=== PATIENT | male | born 1960 | race Caucasian/White ===

== ENCOUNTER → 2018-11-05 10:19 | Outpatient (CLI) | payer OTHER | END | disposition home or self-care (01) | LOC: D.MRI 11-03 10:30 | DX: M75.111 Incomplete rotator cuff tear or rupture of right shoulder, not specified as traumatic (principal); M54.12 Radiculopathy, cervical region ==

== ENCOUNTER 2019-01-18 06:50 | Day surgery (SDC) | payer OTHER ==
[2019-01-14 14:46] LABS: HEMATOCRIT 45.6 % (42.0-54.0); HEMOGLOBIN 15.5 g/dL (13.5-17.5); MCH 31.9 pg (26.0-34.0); MCV 93.8 fL (80.0-100.0); MEAN PLATELET VOLUME 10.1 fL (7.4-10.4); RBC 4.86 10x6/uL (4.20-6.10); RDW 12.7 % (11.5-14.5); WBC 4.6 10x3/uL (4.8-10.8)
[2019-01-14 15:12] LABS: ANION GAP 11.8 mmol/L (8-16); CALCIUM 8.9 mg/dL (8.5-10.1); CARBON DIOXIDE 30.8 mmol/L (21.0-32.0); CREATININE - SERUM 1.3 mg/dL (0.6-1.3); POTASSIUM - SERUM 3.6 mmol/L (3.5-5.1)
[~2019-01-18] VITALS: Ht 175.3 cm; Wt 86.2 kg
[~2019-01-18 06:50] MED LIST: AMBIEN10 MG PO; AVAPRO150 MG PO; CRESTOR10 MG PO; HYDROCODON-ACE1 EA10 PO; TESTOSTERONE 1%
[2019-01-18] MEDS ORDERED: CO Q-10100 MG PO (07:06)
[2019-01-18] MEDS ORDERED: FOLBIC RF TABL1 EACH PO (07:06)
[2019-01-18] MEDS ORDERED: [UNRECOGNIZED DRUG - OTHER] PO (07:06)
[2019-01-18 07:15] VITALS: BP 140/90; Ht 175.3 cm; Wt 86.2 kg
[2019-01-18] MEDS ORDERED: PERCOCET 10-321 EAC1 PO (10:56)
--- NOTE | 2019-01-18 13:09 | OP ---
PATIENT NAME: YULIANA ZIMMEMRAN MEDICAL RECORD: [id number] :64 LOCATION:[facility] ADMISSION DATE: SURGEON: DILSHAD LIU DO DATE OF OPERATION: 01/18/2019 PROCEDURES PERFORMED: Right shoulder arthroscopy, subacromial decompression, distal clavicle excision, biceps tenodesis, and labral debridement. PREOPERATIVE DIAGNOSES: Right shoulder pain, right shoulder SLAP tear, subacromial impingement, and AC joint arthritis. POSTOPERATIVE DIAGNOSES: Right shoulder pain, right shoulder SLAP tear, subacromial impingement, and AC joint arthritis. INDICATIONS: Mr. Zimmerman is a 58-year-old male who has had right shoulder pain for quite some time. He had an MRI which did show some impingement-type anatomy, possibly partial tear of the rotator cuff, and SLAP tear. He had been nursing this along with injections and physical therapy. He was tired of dealing with the pain. He finally wanted to get something done. He was informed of risks and benefits including infection, bleeding, damage to nerves and vessels, need for further surgery, continued pain; and he signed the consent. SURGEON: Dilshad Liu DO DESCRIPTION OF PROCEDURE: The patient was taken to the operative suite, laid in the left lateral decubitus position with axillary roll under the axilla, and had a beanbag placed around him. The patient was sedated and an LMA was placed. He had received a block by anesthesia in the preoperative area. He was given 900 mg of clindamycin preoperatively. Time-out was performed and everyone was in agreement with correct site, side, patient, and procedure. The right shoulder was prepped and draped in sterile fashion. The procedure then began by injecting 60 mL of normal saline into the right shoulder joint for the posterior portal. The posterior portal was then established with #11 blade scalpel. A trocar was entered into the shoulder joint. The anterior portal was established with an 18-gauge spinal needle and #11 blade scalpel. The SLAP tear was noted, peeling it back; and the biceps tendon was tenotomized at that point. The rotator cuffs were inspected. The subscapularis was intact and no tear was seen there as well as at the supraspinatus and the infraspinatus. The inferior gutter looked clear of debris and the shoulder joint itself looked free of any arthritis or chondromalacia. The camera was then taken out of the shoulder joint itself including the subacromial space. A subacromial decompression was done at that time. The bursa was removed off the rotator cuff and the acromion was cleaned off as well with the burner. The shaver was brought in and a distal clavicle resection was done. The anterolateral resection was done off the spur of the acromion. Then, the AC joint was exposed and the shaver was brought in through the anterior portal. The distal clavicle was removed, opening up the AC joint approximately 7 mm. The bursa was then thoroughly inspected and removed off the rotator cuff of the bursal side and no tears were seen in the rotator cuff. The arm was rotated. The suction was then turned on and the water was turned off. The attention was drawn to the anterior humerus, where an incision was made and careful dissection was made down to the deltopec interval. This was opened up and then the long head of the biceps tendon was tenotomized earlier. It was pulled out through the incision and whipstitched and then a drill hole was placed in unicortically in the humerus and a button was placed on OPERATIVE REPORT [id number] YULIANA ZIMMERMAN GENE the whipstitch tendon and into the hole in the humerus. This was cinched down and then tied and then a free needle was used to go through the bicep tendon again and this was tied. The excess suture and tendon were cut at that time. The site was irrigated. Any bleeding was coagulated at that time. The site was closed with 2-0 Vicryl in inverted interrupted fashion. Monocryl 4-0 was run on the skin. A lateral incision was made prior to the subacromial decompression with 18-gauge spinal needle and #11 blade scalpel. All 3 of the poke holes of the shoulder were closed with 4-0 Monocryl in inverted interrupted fashion. Dermabond, Telfa, and Tegaderm were placed on all the incision sites. The patient was awakened and taken to recovery in stable condition. BLOOD LOSS: Minimal. COMPLICATIONS: None. TRANSINT:[id number] Voice Confirmation ID: [id number] DOCUMENT ID: [id number] DILSHAD LIU DO at 1309 CC: [id number] DICTATION DATE: 01/18/19 [address] SUPERVISOR: 01/18/19 1213 [facility] [place] 01/18/19 [id number] [place] [address]
== END 2019-01-18 12:46 | disposition home or self-care (01) ==
LOC: D.OPS 06:50
PROVIDERS: Anesthesiology; ATTEND Orthopaedic Surgery
DX: S43.431A Superior glenoid labrum lesion of right shoulder, initial encounter (principal); M75.41 Impingement syndrome of right shoulder; M13.811 Other specified arthritis, right shoulder; X58.XXXA Exposure to other specified factors, initial encounter; Z01.812 Encounter for preprocedural laboratory examination